=== PATIENT | male | born 2000 | race Hispanic/Latino ===

== ENCOUNTER 2018-04-22 12:23 | Emergency (ER) | payer MEDICAID, OTHER ==
[2018-04-22 13:48] LABS: ALB/GLOB RATIO 1.7 (1.0-2.1); ALBUMIN 4.6 g/dL (3.5-5.0); ALT/SGPT 21 U/L (21-72); AST/SGOT 28 U/L (17-59); BLOOD UREA NITROGEN 12 mg/dl (9-20); CALCIUM 9.3 mg/dL (8.4-10.2); GFR NON-AFRICAN AMERICAN > 60
[2018-04-22 13:50] LABS: BASO % 0.2 % (0.0-2.0); EOS # 0.1 K/uL (0.0-0.7); EOS % 0.4 % (0.0-4.0); HEMOGLOBIN 13.7 g/dL (12.0-18.0); LYMPH # 1.8 K/uL (1.0-4.3); LYMPH % 15.9 % (20.0-40.0); MEAN CELL VOLUME 90.2 fl (80.0-94.0); MEAN CORPUSCULAR HGB CONC 33.2 g/dL (33.0-37.0); MEAN PLATELET VOLUME 8.5 fl (7.2-11.7); MONO # 0.6 K/uL (0.0-0.8); MONO % 5.4 % (0.0-10.0); NEUT # 8.9 K/uL (1.8-7.0); NEUT % 78.1 % (50.0-75.0); NRBC % 0.2 % (0.0-0.0); RBC 4.56 Mil/uL (4.40-5.90); WHITE BLOOD COUNT 11.4 K/uL (4.8-10.8)
--- NOTE | 2018-04-22 14:21 | ED PDOC ---
HPI: General Adult Time Seen by Provider: 04/22/18 12:37 Chief Complaint (Nursing): Medical Clearance Chief Complaint (Provider): Dizziness, nausea History Per: Patient History/Exam Limitations: no limitations Current Symptoms Are (Timing): Still Present Additional Complaint(s): 17yo male, brought to ER under police custody, for evaluation as patient became dizzy and nauseous. Patient claims he is a diabetic and takes insulin, however has been noncompliant for 3 days. Patient states he is unsure what insulin her takes and initially reported 300 units and then states he takes 30 units. Lora ent does not have a PMD and is unable to recall what pharmacy he goes to for the insulin. Patient reports talking half a percocet this morning for his chronic wrist pain (prescribed by pain management doctor). Patient was given oral glucose prior to arrival. Patient has history of anxiety and depression and denies any suicidal or homicidal ideation at this time. Past Medical History Reviewed: Historical Data, Nursing Documentation, Vital Signs - Medical History PMH: Anxiety, Depression, Chronic Pain (right wrist) - Surgical History Surgical History: No Surg Hx - Family History Family History: States: No Known Family Hx - Social History Current smoker - smoking cessation education provided: No Alcohol: None Drugs: Denies - Home Medications Home Medications: Ambulatory Orders Medication Instructions Recorded Polyethylene Glycol 3350 [Miralax] 17 g PO DAILY PRN #1 bottle 04/22/18 - Allergies Allergies/Adverse Reactions: Allergies Allergy/AdvReac Type Severity Reaction Status Date / Time No Known Allergies Allergy Verified 04/22/18 12:57 Review of Systems ROS Statement: Except As Marked, All Systems Reviewed And Found Negative Gastrointestinal: Positive for: Nausea Musculoskeletal: Positive for: Hand Pain (right wrist pain, chronic) Neurological: Positive for: Dizziness Physical Exam - Reviewed Nursing Documentation Reviewed: Yes Vital Signs Reviewed: Yes - Physical Exam Appears: Positive for: No Acute Distress Head Exam: Positive for: ATRAUMATIC, NORMAL INSPECTION, NORMOCEPHALIC Skin: Positive for: Normal Color, Diaphoresis Eye Exam: Positive for: EOMI, PERRL Neck: Positive for: Supple Cardiovascular/Chest: Positive for: Regular Rate, Rhythm. Negative for: Tachycardia Respiratory: Positive for: Normal Breath Sounds. Negative for: Respiratory Distress Gastrointestinal/Abdominal: Positive for: Normal Exam, Soft. Negative for: Tenderness Back: Positive for: Normal Inspection Extremity: Positive for: Normal ROM, Other (chronic skin changes to right wrist). Negative for: Deformity Neurologic/Psych: Positive for: Alert, Oriented, Mood/Affect (calm and cooperative). Negative for: Motor/Sensory Deficits, Aphasia, Facial Droop - Laboratory Results Result Diagrams: 04/22/18 13:24 04/22/18 13:24 Lab Results: Troponin I < 0.0120 ng/mL (0.00-0.120) 04/22/18 13:24 Total Bilirubin 0.3 mg/dl (0.2-1.3) 04/22/18 13:24 AST 28 U/L (17-59) 04/22/18 13:24 ALT 21 U/L (21-72) 04/22/18 13:24 Alkaline Phosphatase 86 U/L (38-126) 04/22/18 13:24 Total Protein 7.2 G/DL (6.3-8.2) 04/22/18 13:24 Albumin 4.6 g/dL (3.5-5.0) 04/22/18 13:24 Globulin 2.7 gm/dL (2.2-3.9) 04/22/18 13:24 Albumin/Globulin Ratio 1.7 (1.0-2.1) 04/22/18 13:24 - ECG ECG: Positive for: Interpreted By Me, Viewed By Me ECG Rhythm: Positive for: Sinus Bradycardia. Negative for: ST/T Changes Interpretation Of ECG: Normal intervals Rate: 58 O2 Sat by Pulse Oximetry: 100 (RA) Pulse Ox Interpretation: Normal Medical Decision Making Medical Decision [place] male brought by police under custody for evaluation Per police, unsure if patient ingested something prior to arrival Plan: -- Observe in ED for several hours -- EKG -- UDS -- Crisis evaluation -- Labs 1446 XR abdomen ordered for further evaluation UDS reviewed. 1504 Patient signed out to Dr. Trujillo pending GORDO Scribe Attestation: Documented by Jerilyn Reyes acting as a scribe for Frank Zee DO Provider Attestation: All medical record entries made by the Scribe were at my direction and personally dictated by me. I have reviewed the chart and agree that the record accurately reflects my personal performance of the history, physical exam, medical decision making, and the department course for this patient. I have also personally directed, reviewed, and agree with the discharge instructions and disposition. Disposition - Clinical Impression Clinical Impression: Polysubstance abuse, Constipation - Patient ED Disposition Is Patient to be Admitted: Transfer of Care Counseled Patient/Family Regarding: Studies Performed - Disposition Disposition: Transfer of Care Disposition Time: 15:05 Condition: IMPROVED Additional Instructions: follow up with your primary doctor take fiber and eat a high fiber diet return to the ED with any worsening or concerning symptoms you are medically and psychiatrically cleared for incarceration Prescriptions: Polyethylene Glycol 3350 [Miralax] 17 g PO DAILY PRN #1 bottle PRN Reason: Constipation Instructions: Constipation in Adults, Constipation, Adult (DC), General (DC), Polysubstance Abuse (DC) Forms: [employer] (Armenian)
[2018-04-22 14:32] VITALS: O2SAT 100
[2018-04-22 14:48] LABS: BARBITURATES, UR NEGATIVE (NEGATIVE); BENZODIAZEPINES, UR NEGATIVE (NEGATIVE); OPIATES, UR POSITIVE (NEGATIVE); PHENCYCLIDINE, UR NEGATIVE (NEGATIVE)
--- NOTE | 2018-04-22 15:34 | ED PDOC ---
- Laboratory Results Result Diagrams: 04/22/18 13:24 04/22/18 13:24 Lab Results: Troponin I < 0.0120 ng/mL (0.00-0.120) 04/22/18 13:24 Total Bilirubin 0.3 mg/dl (0.2-1.3) 04/22/18 13:24 AST 28 U/L (17-59) 04/22/18 13:24 ALT 21 U/L (21-72) 04/22/18 13:24 Alkaline Phosphatase 86 U/L (38-126) 04/22/18 13:24 Total Protein 7.2 G/DL (6.3-8.2) 04/22/18 13:24 Albumin 4.6 g/dL (3.5-5.0) 04/22/18 13:24 Globulin 2.7 gm/dL (2.2-3.9) 04/22/18 13:24 Albumin/Globulin Ratio 1.7 (1.0-2.1) 04/22/18 13:24 - ECG O2 Sat by Pulse Oximetry: 100 (RA) Pulse Ox Interpretation: Normal Medical Decision Making Medical Decision Making: Patient signed out to me by Dr. Zee pending crisis evaluation, KUB and reassessment. 1530 Patient seen and evaluated by crisis team; per Dr. Watt, pt is cleared to be released back to police custody; diagnosis: adjustment disorder Patient pending KUB. 1600 KUB FINDINGS: BOWEL: Nonobstructive bowel gas pattern appreciated. No gross free intra peritoneal gas collection identified. Extensive retained fecal material seen throughout the colon suggesting constipation. Clinically correlate further. BONES: Normal. OTHER FINDINGS: Small phlebolith like calcifications are infrequently seen the inferior pelvic soft tissues bilaterally. IMPRESSION: Prominent retained fecal material throughout the large bowel suggest constipation. Clinically correlate further. No definite bowel obstruction pattern appreciated. 1618 On reassessment, patient is in no acute distress. pt aware of results. Patient prescribed miralax for constipation. XR Abdomen shows no ingested foreign body. crisis cleared pt with diagnosis of adjustment disorder. Patient medically and psychiatrically cleared to be released back to police custody. Scribe Attestation: Documented by Jerilyn Reyes acting as a scribe for Maik Trujillo MD Provider Attestation: All medical record entries made by the Scribe were at my direction and personally dictated by me. I have reviewed the chart and agree that the record accurately reflects my personal performance of the history, physical exam, [facility] decision making, and the department course for this patient. I have also personally directed, reviewed, and agree with the discharge instructions and disposition. Disposition Counseled Patient/Family Regarding: Studies Performed, Diagnosis, Rx Given - Clinical Impression Clinical Impression: Polysubstance abuse, Constipation - POA Present On Arrival: None - Disposition Disposition: Discharged/Transfer to Law Enforcement Disposition Time: 16:20 Condition: IMPROVED Additional Instructions: follow up with your primary doctor take fiber and eat a high fiber diet return to the ED with any worsening or concerning symptoms you are medically and psychiatrically cleared for incarceration Prescriptions: Polyethylene Glycol 3350 [Miralax] 17 g PO DAILY PRN #1 bottle PRN Reason: Constipation Instructions: Constipation in Adults, Constipation, Adult (DC), General (DC), Polysubstance Abuse (DC) Forms: [employer] (Chinese)
--- NOTE | 2018-04-22 15:56 | RAD ---
Date of service: 04/22/2018 HISTORY: potential ingestion COMPARISON: None available. FINDINGS: BOWEL: Nonobstructive bowel gas pattern appreciated. No gross free intra peritoneal gas collection identified. Extensive retained fecal material seen throughout the colon suggesting constipation. Clinically correlate further. BONES: Normal. OTHER FINDINGS: Small phlebolith like calcifications are infrequently seen the inferior pelvic soft tissues bilaterally. IMPRESSION: Prominent retained fecal material throughout the large bowel suggest constipation. Clinically correlate further. No definite bowel obstruction pattern appreciated.
[2018-04-22 16:52] VITALS: BP 138/76; RESP 16; TEMP 98.7
--- NOTE | 2018-04-22 21:50 | CARD ---
APPROVED REPORT Date of service: 04/22/2018 EKG Measurement Heart [id number] <Conclusion> Sinus bradycardia Possible Left atrial enlargement Borderline ECG
[2018-04-23 15:57] VITALS: PULSE 58
== END 2018-04-22 16:20 | disposition home or self-care (01) ==
LOC: H.ER 12:23
DX: F19.10 Other psychoactive substance abuse, uncomplicated (principal); K59.00 Constipation, unspecified; M79.641 Pain in right hand; R00.1 Bradycardia, unspecified; F43.20 Adjustment disorder, unspecified; F32.9 Major depressive disorder, single episode, unspecified; F41.9 Anxiety disorder, unspecified; E11.9 Type 2 diabetes mellitus without complications; Z79.4 Long term (current) use of insulin; Z91.19 Patient's noncompliance with other medical treatment and regimen
CPT/HCPCS: 74018; 80053; 82948; 84484; 85025; 93005; 99282; G0480